=== PATIENT | male | born 1990 | race Caucasian/White ===

== ENCOUNTER 2016-12-07 13:51 | Emergency (ER) | payer SELFPAY ==
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
[2016-12-07 16:52] VITALS: BP 132/90
== END 2016-12-07 16:51 | disposition home or self-care (01) ==
LOC: ED 13:51
DX: M25.522 Pain in left elbow (principal); M25.562 Pain in left knee; M79.642 Pain in left hand; M79.641 Pain in right hand; Y09 Assault by unspecified means; Y92.9 Unspecified place or not applicable
CPT/HCPCS: 99283